=== PATIENT | female | born 1945 | race Caucasian/White ===

== ENCOUNTER 2022-01-29 12:20 | Emergency (ER) | payer MEDICARE ==
[~2022-01-29 12:20] MED LIST: ASCORBIC ACID500 MG PO; CALCIUM 500 +1 EAC5 PO; DOXYCYCLINE MO100 MG PO; IBUPROFEN400 M1 PO; LIPITOR20 MG PO; LODINE400 MG PO; LOPRESSOR25 MG PO; NORCO 5-325 TA1 EAC1 PO; NORCO 5-325 TA1 EACH PO; PRILOSEC20 MG PO
[2022-01-29 13:03] LABS: BASOPHIL 0.6 % (0-2); EOSINOPHIL 0.4 % (0-7); HCT 41.7 % (37.0-47.0); LYMPHOCYTE 13.1 % (15-48); MCH 29.6 pg (25.0-31.0); MCHC 33.6 g/dL (32.0-36.0); MCV 88.2 fL (78.0-100.0); MONOCYTE 9.1 % (0-12); MPV 8.6 fL (6.0-9.5); NEUTROPHIL 76.2 % (41-80); NRBC 0; PLT 419 K/uL (150-400); RBC 4.73 M/uL (4.20-5.40); RDW 13.6 % (11.5-14.0); WBC 10.7 K/uL (4.0-10.5)
[2022-01-29 13:25] LABS: ALBUMIN 3.5 g/dL (3.4-5.0); BILIRUBIN - TOTAL 0.6 mg/dL (0.2-1.0); CREATININE 0.5 mg/dL (0.51-0.95); MAGNESIUM 1.8 mg/dL (1.8-2.4); TOTAL PROTEIN 7.5 g/dL (6.4-8.2)
== END 2022-01-29 16:41 | disposition home or self-care (01) ==
LOC: FER 12:20
PROVIDERS: Emergency Medicine
DX: R07.89 Other chest pain (principal); E78.5 Hyperlipidemia, unspecified; Z88.8 Allergy status to other drugs, medicaments and biological substances; Z79.899 Other long term (current) drug therapy
CPT/HCPCS: 36415; 71045; 80053; 83735; 84484; 85025; 93005